=== PATIENT | male | born 1955 | race Two or more races ===

== ENCOUNTER 2022-03-30 10:07 | Inpatient (IN) | payer OTHER ==
[~2022-03-30] VITALS: Wt 113.4 kg
[~2022-03-30 10:07] MED LIST: AVAPRO150 MG PO; ECOTRIN81 MG PO; FARXIGA10 MG PO; FISH OIL + D31 EACH PO; LIPITOR40 MG PO; METFORMIN HCL1000 M2 PO; NORVASC5 MG PO
[2022-03-31] MEDS ORDERED: LATANOPROST2.5 ML (08:18)
[2022-03-31] MEDS ORDERED: ULTRAM50 MG PO (16:07)
[2022-03-31] MEDS ORDERED: METRONIDAZOLE500 MG PO (16:07)
[2022-03-31] MEDS ORDERED: CIPRO500 MG PO (16:09)
[2022-03-31] MEDS ORDERED: INTESTINEX680 M1 PO (16:09)
== END 2022-03-31 17:41 | disposition home or self-care (01) | DRG 334 ==
LOC: CIR.AMB 10:07 → SURG 18:21
PROVIDERS: ADMIT Surgery; ATTEND Surgery
PROC: 3E0T3BZ Introduction of Anesthetic Agent into Peripheral Nerves and Plexi, Percutaneous Approach (ICD-10-PCS; 2022-03-30)
PROC: 0DBP0ZZ Excision of Rectum, Open Approach (ICD-10-PCS; principal; 2022-03-30 10:30)
DX: C20 Malignant neoplasm of rectum (principal); Z20.822 Contact with and (suspected) exposure to COVID-19